=== PATIENT | female | born 1960 | race African-American/Black ===

== ENCOUNTER 2017-01-24 10:24 | Emergency (ER) | payer OTHER ==
[~2017-01-24 10:24] MED LIST: ACTOPLUS MET PO; AMITRYPTYLINE PO; ASPIRIN PO; AVANDAMET 1 MG/1 TAB PO; COLACE PO; GLUCOPHAGE850 MG PO; GLUCOTROL PO; HUMALOG100 U/ML SUBQ; IBUPROFEN PO; LANTUS100 U/ML INJ; LIPITOR PO; METFORMIN PO; PRAVACHOL PO; PRILOSEC PO; ZITHROMAX PO; [UNRECOGNIZED DRUG - OTHER]
== END 2017-01-24 11:24 | disposition home or self-care (01) ==
LOC: CFTX 10:24
DX: M17.0 Bilateral primary osteoarthritis of knee (principal); E11.8 Type 2 diabetes mellitus with unspecified complications; E78.5 Hyperlipidemia, unspecified; Z79.899 Other long term (current) drug therapy; Z88.6 Allergy status to analgesic agent; Z88.8 Allergy status to other drugs, medicaments and biological substances
CPT/HCPCS: 99282

== ENCOUNTER → 2017-01-31 | Outpatient (CLI) | payer MEDICAID ==
--- NOTE | ~2017-01-31 | CR172 ---
[facility] A Service of [facility] & [facility] RADIOLOGY TEXT RESULTS PATIENT: KACEY ARRIAGA LOCATION: [facility] : 64 UNIT #: [id number] AGE: [address]: Jewels Ingram MD SEX: F ORDER DR: [id number] [facility] [address] [place], [place] [address] [id number] O MR#: [id number] Acc #: [id number] NAME: KACEY ARRIAGA : 1960 SEX: F STUDY DATE/TIME: 01/31/2017 16:08 UNIT: [facility] ROOM: STUDY DESCRIPTION: CR Knee 3 Views Lt Attending Physician: Jewels Ingram M.D. Referring Physician: Jewels Ingram M.D. Ordering Physician: Jewels Ingram M.D. Primary Care Physician: Patrick Ray M.D. MEDICAL IMAGING REPORT This report is preliminary unless electronic signature is present EXAM Left knee 3 views 01/31/2017 HISTORY Osteoarthritis left knee. Left knee pain with grinding sensation for 2 years worsening in the last 3 months. No known trauma. FINDINGS 3 views of the left knee demonstrate no fracture. There is degenerative change with osteophytic spurring extending off the medial and lateral aspects of the tibial plateau and the medial femoral condyle as well as along the posterior aspect of the patella. The bones are normally mineralized. There is no joint effusion. IMPRESSION Degenerative change about the left knee as detailed above. No acute abnormality. Dictated by... Rachid Dumont M.D. THIS IS AN ELECTRONICALLY VERIFIED REPORT Rachid Dumont M.D. at 02/03/2017 12:19 PM YASH/imelda TD: 02/01/2017 04:54 JOB #: [id number] MEDICAL IMAGING REPORT Page 1 of 1 COPY
--- NOTE | ~2017-01-31 | CR173 ---
[facility] A Service of [facility] & [facility] RADIOLOGY TEXT RESULTS PATIENT: KACEY ARRIAGA LOCATION: [facility] : 64 UNIT #: [id number] AGE: [address]: Jewels Ingram MD SEX: F ORDER DR: [id number] [facility] [address] [place], [place] [address] [id number] O MR#: [id number] Acc #: [id number] NAME: KACEY ARRIAGA : 1960 SEX: F STUDY DATE/TIME: 01/31/2017 16:06 UNIT: [facility] ROOM: STUDY DESCRIPTION: CR Knee 3 Views Rt Attending Physician: Jewels Ingram M.D. Referring Physician: Jewels Ingram M.D. Ordering Physician: Jewels Ingram M.D. Primary Care Physician: Patrick Ray M.D. MEDICAL IMAGING REPORT This report is preliminary unless electronic signature is present EXAM Right knee 3 views 01/31/2017 HISTORY Right knee pain for 2 years worsening in the last 3 months with grinding sensation. No known injury. FINDINGS 3 views of the right knee demonstrate no fracture. The joint space is normally maintained. Prominent osteophytes extend off the medial compartment of the knee as well as along the posterior aspect of the patella. The bones are normally mineralized. There is no joint effusion. IMPRESSION Degenerative change about the right knee. No acute abnormality. Dictated by... Rachid Dumont M.D. THIS IS AN ELECTRONICALLY VERIFIED REPORT Rachid Dumont M.D. at 02/03/2017 12:19 PM YASH/imelda TD: 02/01/2017 04:35 JOB #: [id number] MEDICAL IMAGING REPORT Page 1 of 1 COPY
== END | disposition home or self-care (01) ==
LOC: CRAD 15:47
DX: M17.0 Bilateral primary osteoarthritis of knee (principal)
CPT/HCPCS: 73562

== ENCOUNTER 2017-05-05 18:55 | Emergency (ER) | payer MEDICAID ==
[~2017-05-05] VITALS: Ht 154.9 cm; Wt 63.5 kg
--- NOTE | ~2017-05-05 | EKG ---
PATIENT: KACEY ARRIAGA UNIT #: [id number] Ventricular Rate: 81 BPM Atrial Rate: 81 BPM P-R Interval: 138 ms QRS Duration: 78 ms Q-T Interval: 382 ms QTC Calculation(Bezet): 443 ms P Shaw: 67 degrees Calculated R Shaw: 29 degrees Calculated T Shaw: 54 degrees Diagnosis Line: Normal sinus rhythm Diagnosis Line: Normal ECG Diagnosis Line: When compared with ECG of 03-DEC-2016 11:08, Diagnosis Line: No significant change was found Diagnosis Line: Confirmed by SOHA GALVAN MD ([id number]) on Diagnosis Line: 05/06/2017 3:52:20 PM INTERPRETING MD: COLE TRIANA
[2017-05-05 19:40] LABS: BASOPHIL# 0.2 X10e3 (0-0.3); BASOPHIL% 1.3 % (0-2.5); EOSINOPHIL# 0.3 X10e3 (0-0.7); EOSINOPHIL% 2.2 % (0.0-7.0); HEMOGLOBIN 11.6 gm/dL (12.0-16.0); LYMPHOCYTE# 4.8 X10e3 (1.0-3.5); LYMPHOCYTE% 38.4 % (17.0-45.0); MEAN CELL VOLUME 86.8 FL (83-96); MEAN CORPUSCULAR HGB CONC 32.2 g/dL (30-36); MEAN PLATELET VOLUME 9.1 FL (6.5-11.5); MONOCYTE# 0.8 X10e3 (0-1.0); MONOCYTE% 6.2 % (3.0-12.0); NEUTROPHIL# 6.5 X10e3 (1.5-7.1); NEUTROPHIL% 51.9 % (40-75); PLATELET COUNT 405 X10e3 (140-420); RED BLOOD COUNT 4.14 X10e (3.90-5.30); RED CELL DISTRIBUTION WIDTH 14.8 % (11.0-15.5); WHITE BLOOD COUNT 12.4 X10e3 (4.0-10.5)
[2017-05-05 19:41] LABS: DIFF IND NO
[2017-05-05 19:50] LABS: URINE SOURCE CLEAN CATCH
[2017-05-05 20:00] LABS: URINE APPEARANCE CLEAR; URINE BILIRUBIN NEG (NEG); URINE BLOOD NEG (NEG); URINE COLOR YELLOW; URINE GLUCOSE NEG (NEG); URINE KETONE TRACE (NEG); URINE LEUKOCYTE ESTERASE 2+ (NEG); URINE NITRATE NEG (NEG); URINE PROTEIN NEG (NEG); URINE SPECIFIC GRAVITY 1.025 (1.003-1.035)
[2017-05-05 20:01] LABS: URBCS1 AUWI 0-2 /[HPF] (0-2); URINE BACTERIA AUWI NEG (NEGATIVE); URINE SQUAMOUS EPITHELIAL CELL NONE SEEN /[HPF]
[2017-05-05 20:02] LABS: ALBUMIN SERUM 4.1 g/dL (3.5-5.0); ALKALINE PHOSPHATASE 95 U/L (32-92); ALT (SGPT) 21 U/L (10-40); AST (SGOT) 18 U/L (10-42); BILIRUBIN,TOTAL 0.2 mg/dL (0.2-2.0); BLOOD UREA NITROGEN 16 mg/dL (9-23); BUN/CREATININE RATIO 22.85; CALCIUM SERUM 9.5 mg/dL (8.4-10.2); CARBON DIOXIDE 30 mmol/L (22-31); CHLORIDE 99 mmol/L (100-111); CREATININE SERUM 0.7 mg/dL (0.6-1.4); GLOM FILT RATE Estimated 113.8 mL/min (>60); GLUCOSE FASTING 181 mg/dL (70-110); POTASSIUM 4.2 mmol/L (3.5-5.1); PROTEIN TOTAL SERUM 7.6 g/dL (6.0-8.3); SODIUM 136 mmol/L (135-145)
[2017-05-05 20:05] LABS: BILIRUBIN, DIRECT <0.1 mg/dL (0.0-0.2); BILIRUBIN,INDIRECT 0.1 mg/dL (0.0-0.9)
[2017-05-05 20:06] LABS: POC - CKMB <1.0 ng/mL (0.0-7.9); POC - TROPONIN <0.05 ng/mL (<=0.05)
[2017-05-05 20:06] LABS: CULTURE INDICATED? NO
== END 2017-05-05 21:18 | disposition home or self-care (01) ==
LOC: CED 18:55
PROVIDERS: Emergency Medicine
DX: G47.00 Insomnia, unspecified (principal); F32.9 Major depressive disorder, single episode, unspecified; E11.9 Type 2 diabetes mellitus without complications; J45.909 Unspecified asthma, uncomplicated; E78.5 Hyperlipidemia, unspecified; Z88.6 Allergy status to analgesic agent
CPT/HCPCS: 36415; 80048; 80076; 81003; 82553; 82947; 84484; 85025; 93005; 99284